=== PATIENT | female | born 1940 | race Caucasian/White ===

== ENCOUNTER 2016-09-05 04:51 | Emergency (ER) | payer MEDICARE ==
[2016-09-05] MEDS ORDERED: IOPAMIDOL 370 (76%) 100 ML VIAL IV ONE (04:52)
[2016-09-05] MEDS ORDERED: ALBUTEROL NEB 2.5 MG/3 ML VIAL.NEB NEB ONE (05:24)
[2016-09-05] MEDS ORDERED: METHYLPRED SOD SUCCINATE 125 MG VIAL ONE (05:24)
[2016-09-05] MEDS ORDERED: ASPIRIN CHEWTAB 81 MG TABLET ONE (06:40)
[2016-09-05 07:07] LABS: ABSOLUTE NEUTROPHIL COUNT 3.2 K/mm3 (1.8-7.7); BASO # 0.1 K/mm3 (0.0-0.2); BASO % 1.1 % (0.2-1.0); EOS # 0.3 (0.0-0.5); EOS % 6.2 % (0.9-2.9); HEMOGLOBIN 12.1 gm/l (12.0-16.0); IMM NEUT% 0.6 % (0-1); LYMPH # 0.9 (1.0-4.8); MEAN CELL VOLUME 93.2 fl (81.0-99.0); MEAN CORPUSCULAR HEMOGLOBIN 30.5 pg (27.0-31.0); MEAN CORPUSCULAR HGB CONC 32.7 g/dl (33.0-37.0); MEAN PLATELET VOLUME 9.3 fl (7.4-10.4); MONO # 0.2 (0.0-0.8); MONO % 5.1 % (4-12); PLATELET COUNT 187 K/mm3 (130-400); RED CELL DISTRIBUTION WIDTH 12.9 % (11.5-14.5)
[2016-09-05 07:14] LABS: CALCIUM 9.2 mg/dL (8.6-10.3)
--- NOTE | 2016-09-05 08:36 | RAD ---
CHEST - 2 VIEWS COMPARISON: None. HISTORY: Shortness of breath, cough, and hypoxia. FINDINGS: Views: Frontal and lateral chest Lungs: Normal lung volume. Increased interstitial markings. Heart and vessels: Cardiomegaly. Vascular congestion. Trachea and bronchi: Normal Mediastinum and janette: Normal Costophrenic sulci: Normal Chest wall and bones: Normal. Upper abdomen: Normal. IMPRESSION: Evidence of congestive heart failure with cardiomegaly, pulmonary vascular congestion, and interstitial edema.
--- NOTE | 2016-09-05 09:53 | CT ---
CTA CHEST FOR PE COMPARISON: Chest 2 views, 09/05/2016 HISTORY: Shortness of breath and hypoxia. Technique: Intravenous injection 80 mL Isovue-370 with insufficient enhancement of the pulmonary arteries. Repeat intravenous injection of 80 mL Isovue-370 with excellent contrast opacification. Using a [employer] Aquilion [address] scanner, following a CT angiogram protocol, images obtained through the thorax. Under concurrent supervision and interpretation, requiring a separate 3-D workstation, the technologist created 3-D CT angiograms. An automated dose reduction technique was used to minimize patient radiation dose. Dose information: CTDIvol (mGy): 7.70, 164.30, 28.20, 7.75, 130.30, 29.30 DLP(mGycm): 1998.80 FINDINGS: Pulmonary arteries and veins: Excellent contrast opacification. No pulmonary embolism. Aorta: Atherosclerotic calcific plaquing. Heart and coronary arteries: Coronary artery atherosclerosis. Lungs: No evidence of pneumonia or pulmonary edema. There are some scattered nodules 5 mm smaller. Trachea and bronchi: Normal. Mediastinum and janette: Normal. Pleura and pericardium: Normal. Chest wall: Normal. Spine: Moderate degenerative changes. No acute finding. Upper abdomen: Mild hiatal hernia. 3-D CT angiogram: Normal. IMPRESSION: 1. No evidence of deep venous thrombosis. 2. Multiple pulmonary nodules less than 5 mm. 3. Mild hiatal hernia. 4. Moderate spondylosis of the thoracic spine. 5. Atherosclerosis of the coronary arteries and the thoracic aorta. Recommendation: Repeat chest CT in 12 months. The report was sent to the emergency department electronic medical record system 09/05/2016 at 9:55
[2016-09-05] MEDS ORDERED: ACETAMINOPHEN 500 MG TABLET ONE (11:01)
[2016-09-05] MEDS ORDERED: ALBUTEROL/IPRATROPIUM 2.5/0.5 MG 3 ML/EACH DOSE ONE (11:33)
== END 2016-09-05 11:49 | disposition home or self-care (01) ==
LOC: ED 04:51
DX: J45.901 Unspecified asthma with (acute) exacerbation (principal); I10 Essential (primary) hypertension; E11.9 Type 2 diabetes mellitus without complications; Z79.84 Long term (current) use of oral hypoglycemic drugs; Z87.891 Personal history of nicotine dependence
CPT/HCPCS: 83880; 85379; 85025; 80048; 84484 ×2; 71020; 71275; 94640 ×2; 99284 ×2; 96374; A9270 ×2; J2930; Q9967